=== PATIENT | male | born 1960 | race African-American/Black ===

== ENCOUNTER → 2017-06-21 | Outpatient (CLI) | payer OTHER ==
[~2017-06-21] MED LIST: OXYC20TA26 PO
--- NOTE | 2017-06-21 17:29 | TR ---
Date Performed: 06/21/2017 Time Performed: 11:20:48 DOCTOR: Jacki Hooker DRUG LIST: CLINICAL HISTORY: REASON FOR TEST: REASON FOR ENDING: OBSERVATION: CONCLUSION: NANCY PROTOCOL. NO CP. MILD SOB.Maximum MU=170 Max HR Achieved=96.0% Maximum IO=945 /88 Total Exercise Time=10:16 COMMENTS:
== END ==
LOC: HCAV 11:01
PROVIDERS: ATTEND Family Medicine
DX: I10 Essential (primary) hypertension (principal)
CPT/HCPCS: 93017

== ENCOUNTER 2017-07-17 15:03 | Emergency (ER) | payer OTHER ==
[~2017-07-17] VITALS: Ht 180.3 cm; Wt 94.0 kg
[2017-07-17 15:09] VITALS: BP 134/92; PULSE 64; RESP 15; TEMP 97.3; O2SAT 99
[2017-07-17] MEDS ORDERED: LOVA10TA PO (15:26)
[2017-07-17] MEDS ORDERED: LOSA25TA PO (15:26)
--- NOTE | 2017-07-17 16:06 | PD ---
HPI Chief Complaint: Pain: Acute or Chronic Time Seen by Provider: 15:39 Travel History International Travel<30 days: No Contact w/Intl Traveler<30days: No Traveled to known affect area: No History of Present Illness HPI 57-year-old male presents to the emergency room for evaluation of left heel pain for the past 4 days. Pain is localized to the proximal heel and radiates to the plantar heel with ambulation and while standing. Pain is 10/10 when he walks/stands and much less at rest. Patient took ibuprofen without significant relief in symptoms. States pain came on gradually; he denies trauma or injury to the area. Only history of hypertension. PFSH Past Medical History Cardiovascular Problems: Yes (PULMONARY EMBOLUS 2007) Diabetes: No Diminished Hearing: No Deep Vein Thrombosis: Yes Genitourinary: No Hypertension: Yes (OFF MEDS SINCE ADRENAL MASS REMOVED) Musculoskeletal: No Neurologic: No Psychiatric: No Respiratory: Yes (PUMLMONARY EMBOLUS POST SURG FOR ADRENAL GLAND) Influenza Vaccination: No Past Surgical History Endocrine Surgery: Yes (RIGHT ADRENAL GLAND REMOVED 05/04/2008) Other Surgery: Yes (RT ADRENAL GLAND) Social History Alcohol Use: Yes (2-3X/WK) Tobacco Use: No Substance Use: No Allergies-Medications (Allergen,Severity, Reaction): Coded Allergies: No Known Allergies (Verified , 07/17/17) Reported Meds & Prescriptions Reported Meds & Active Scripts Active Reported Lovastatin 10 Mg Tab 10 Mg PO DAILY Losartan (Losartan Potassium) 25 Mg Tab 12.5 Mg PO DAILY Review of Systems Except as stated in HPI: all other systems reviewed are Neg Physical Exam Narrative GENERAL: Well-nourished, well-developed male in no acute distress. Afebrile. Ambulatory. SKIN: Focused skin assessment warm/dry. No erythema or ecchymosis. HEAD: Normocephalic. EYES: No scleral icterus. No injection or drainage. NECK: Supple, trachea midline. No JVD or lymphadenopathy. CARDIOVASCULAR: Regular rate and rhythm without murmurs, gallops, or rubs. RESPIRATORY: Breath sounds equal bilaterally. No accessory muscle use. MUSCULOSKELETAL: No cyanosis, or edema. Achilles tendon intact. Mild tenderness to palpation of the left, proximal heel. Patient is flat-footed. Full range motion of the foot. 2+ dorsalis pedis pulse. Data Data Last Documented VS Vital Signs Date Time Temp Pulse Resp B/P (MAP) Pulse Ox O2 Delivery O2 Flow Rate FiO2 07/17/17 15:09 97.3 64 15 134/92 (106) 99 Orders Orders Foot, Heel Only ([id number]) (07/17/17 ) [facility] Medical Decision Making Medical Screen Exam Complete: Yes Emergency Medical Condition: Yes Medical Record Reviewed: Yes Differential Diagnosis Bone spur, plantar fasciitis, muscle strain, ligament injury Narrative Course 57-year-old male presents to the emergency room for evaluation of left heel pain for the past 4 days. No trauma or injury. Pain is localized to the proximal heel with radiation into the plantar heel. Pain is worsened with ambulation. There is tenderness to palpation at the proximal heel. Left lower extremity is neurovascularly intact with 2+ dorsalis pedis pulse. Full range of motion. History and physical exam are consistent with plantar fasciitis caused by heel spur. X-ray obtained at patient's request. X-ray shows calcaneal bone spur. Patient discharged with prescription for ibuprofen and recommendations for foot inserts as he is flat-footed. Told to follow-up with his primary care physician or return for worsening symptoms. He understands and agrees to plan. Diagnosis Primary Impression: Bone spur on posterior portion of calcaneus Referrals: Primary Care Physician Additional Instructions: Rest and drink plenty of fluids. Purchase [id number], silicone heel shoe inserts/arch supports/heel cups. Take ibuprofen with food as directed, as needed for pain. Follow-up with a primary care physician. Return to the emergency room for worsening symptoms. Disposition: 01 DISCHARGE HOME Condition: Stable Jenifer Hood Jul 17, 2017 16:06
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
[2017-07-17 16:49] VITALS: BP 128/84
== END 2017-07-17 16:50 | disposition home or self-care (01) ==
LOC: PHEFT 15:03
DX: M77.32 Calcaneal spur, left foot (principal)
CPT/HCPCS: 73650; 99283

== ENCOUNTER 2018-01-29 00:18 | Emergency (ER) | payer OTHER ==
[~2018-01-29 00:18] MED LIST changes: +LOSA25TA PO; +LOVA10TA PO; -OXYC20TA26 PO
== END 2018-01-29 00:48 | disposition left against medical advice (07) ==
LOC: NED 00:18
DX: R09.89 Other specified symptoms and signs involving the circulatory and respiratory systems (principal)
CPT/HCPCS: 99281

== ENCOUNTER 2018-05-06 21:38 | Inpatient (IN) | payer SELFPAY ==
[~2018-05-06] VITALS: Ht 180.3 cm; Wt 93.4 kg
[2018-05-06 22:07] VITALS: BP 198/132; PULSE 67; RESP 20; TEMP 98.4; O2SAT 100
[2018-05-06] MEDS ORDERED: ALLO300T2 PO (22:12)
[2018-05-06] MEDS ORDERED: hydrALAZINE HCL 20 MG/ML VIAL IV PUSH ONE (22:30)
[2018-05-06] MEDS ORDERED: SODIUM CHLORIDE 0.9% FLUSH 10 ML FLUSH IVF PRN (22:30)
[2018-05-06 22:42] LABS: AUTOMATED NEUTROPHIL # 1.5 TH/MM3 (1.8-7.7); BASOPHIL % 0.7 % (0.0-2.0); EOSINOPHIL # 0.1 TH/MM3 (0-0.4); EOSINOPHIL % 1.1 % (0.0-4.0); HEMATOCRIT 44.7 % (39.0-51.0); HEMOGLOBIN 15.2 GM/DL (13.0-17.0); LYMPHOCYTE # 2.5 TH/MM3 (1.0-4.8); MEAN CELL VOLUME 94.2 FL (80.0-100.0); MONO % 10.4 % (0.0-8.0); MONOCYTE # 0.5 TH/MM3 (0-0.9); NEUT % 32.8 % (16.0-70.0); PLATELET COUNT 295 TH/MM3 (150-450); RED BLOOD COUNT 4.74 MIL/MM3 (4.50-5.90); RED CELL DISTRIBUTION WIDTH 13.4 % (11.6-17.2); WHITE BLOOD COUNT 4.6 TH/MM3 (4.0-11.0)
[2018-05-06 22:51] LABS: CHLORIDE 105 MEQ/L (98-107); SODIUM (NA) 138 MEQ/L (136-145)
[2018-05-06 22:53] LABS: CALCIUM 8.9 MG/DL (8.5-10.1)
[2018-05-06 22:54] LABS: BICARBONATE 27.2 MEQ/L (21.0-32.0); BLOOD UREA NITROGEN 22 MG/DL (7-18); GLUCOSE,RANDOM 86 MG/DL (74-106)
[2018-05-06 22:57] VITALS: BP 216/135; PULSE 82; O2SAT 98
[2018-05-06 22:57] LABS: GLOMERULAR FILTRATION RATE 47 ML/MIN (>89)
[2018-05-06 22:58] VITALS: O2SAT 98
[2018-05-06 23:02] LABS: TROPONIN I LESS THAN 0.02 NG/ML (0.02-0.05)
--- NOTE | 2018-05-06 23:16 | PD ---
HPI Chief Complaint: Hypertension Time Seen by Provider: 22:24 Travel History International Travel<30 days: No Contact w/Intl Traveler<30days: No Traveled to known affect area: No History of Present Illness HPI 58-year-old male presents to the emergency department by private transportation for complaint of elevated blood pressure. Patient states this evening he noticed headache 5/10 in intensity and decided to check his blood pressure is very elevated. Patient states over the past few days she has noted symptoms such as intermittent blurred vision or headache and each time he has checked his blood pressure has been very elevated. Patient states recently he went to urgent care because his primary care provider was out of town and was told that his blood pressure is elevated and was encouraged to increase his current antihypertensive medication. Patient has prior history of blood pressure associated with adrenal mass which was excised numerous years ago. Patient has had no issues with blood pressure until more recently. Patient currently on losartan for blood pressure management. Patient recently had dose increased from 12.5 mg daily to 25 mg daily. Patient has been taking his medication as prescribed. Patient denies any sudden onset thunderclap or worst ever headache. Patient has had no change in mentation. Patient denies any visual disturbance at this time or today. Patient's had no change in speech or difficulty swallowing. Patient's had no gait disturbance. Patient's had no ataxia. Patient's had no upper extremity or lower extremity numbness tingling or weakness. Patient had no chest pain referred neck jaw back shoulder arm pain shortness of breath sweats nausea vomiting or abdominal pain. Patient also has remote history of post op PE and does not report any pleuritic pain or shortness of breath. Patient is unable to identify exacerbating or alleviating factors. 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 Cardiovascular Problems: Yes (PULMONARY EMBOLUS 2007) High Cholesterol: Yes Diabetes: No Diminished Hearing: No Deep Vein Thrombosis: Yes Genitourinary: No Hypertension: Yes Musculoskeletal: No Neurologic: No Psychiatric: No Respiratory: Yes (PUMLMONARY EMBOLUS POST SURG FOR ADRENAL GLAND) Tetanus Vaccination: Unknown Influenza Vaccination: No Past Surgical History Endocrine Surgery: Yes (RIGHT ADRENAL GLAND REMOVED 05/04/2008) Other Surgery: Yes (RT ADRENAL GLAND) Social History Alcohol Use: Yes (2-3X/WK) Tobacco Use: No Substance Use: No Allergies-Medications (Allergen,Severity, Reaction): Coded Allergies: No Known Allergies (Verified Allergy, Unknown, 05/07/18) Reported Meds & Prescriptions Reported Meds & Active Scripts Active Reported Allopurinol 300 Mg Tab 300 Mg PO DAILY Lovastatin 10 Mg Tab 10 Mg PO DAILY Losartan (Losartan Potassium) 25 Mg Tab 12.5 Mg PO DAILY Review of Systems Except as stated in HPI: all other systems reviewed are Neg General / Constitutional: No: Fever, Chills Eyes: Positive: Blurred Vision (intermittently none now), No: Diploplia HENT: Positive: Headaches, No: Neck Stiffness, Neck Pain Cardiovascular: No: Chest Pain or Discomfort, Palpitations, Diaphoresis, Syncope, Dyspnea on exertion, Edema Respiratory: No: Cough, Shortness of Breath, Wheezing, Hemoptysis, Pleuritic Pain Gastrointestinal: No: Nausea, Vomiting, Abdominal Pain Genitourinary: No: Flank Pain Musculoskeletal: No: Myalgias, Arthralgias, Edema Skin: No Rash Neurologic: Positive: Headache, No: Weakness, Dizziness, Syncope, Focal Abnormalities, Coordination Problem, Ataxia, Change in Mentation, Slurred Speech , Paresthesia Psychiatric: No: Anxiety Endocrine: No: Heat Intolerance, Cold Intolerance Hematologic/Lymphatic: No: Easy Bruising Physical Exam Narrative GENERAL: Well-developed well-nourished male no acute distress no respiratory distress; GCS 15; hypertensive SKIN: Warm and dry. HEAD: Atraumatic. Normocephalic. EYES: Pupils equal and round and reactive to light. No scleral icterus. No injection or drainage. ENT: No nasal bleeding or discharge. Mucous membranes pink and moist. NECK: Trachea midline. No JVD. CARDIOVASCULAR: Regular rate and rhythm. RESPIRATORY: No accessory muscle use. Clear to auscultation. Breath sounds equal bilaterally. GASTROINTESTINAL: Abdomen soft, non-tender, nondistended. Hepatic and splenic margins not palpable. MUSCULOSKELETAL: Extremities without clubbing, cyanosis, or edema. No obvious deformities. NEUROLOGICAL: Awake and alert. No obvious cranial nerve deficits. Motor grossly within normal limits. Five out of 5 muscle strength in the arms and legs. Normal speech. PSYCHIATRIC: Appropriate mood and affect; insight and judgment normal. Data Data Last Documented VS Vital Signs Date Time Temp Pulse Resp B/P (MAP) Pulse Ox O2 Delivery O2 Flow Rate FiO2 05/07/18 02:00 74 20 152/106 (121) 98 05/07/18 00:44 Room Air 05/06/18 22:07 98.4 Orders Orders Complete Blood Count With Diff (05/06/18 22:24) Basic Metabolic Panel (Bmp) (05/06/18 22:24) Ct Brain W/O Iv Contrast(Rout) (05/06/18 22:24) Ecg Monitoring (05/06/18 22:24) Iv Access Insert/Monitor (05/06/18 22:24) Oximetry (05/06/18 22:24) Sodium Chloride 0.9% Flush (Ns Flush) (05/06/18 22:30) Troponin I (05/06/18 22:24) Hydralazine Inj (Apresoline Inj) (05/06/18 22:30) Labetalol Inj (Trandate Inj) (05/06/18 23:30) Labetalol Inj (Trandate Inj) (05/07/18 00:00) Labetalol Inj (Trandate Inj) (05/07/18 00:00) Morphine Inj (Morphine Inj) (05/07/18 00:00) Metoclopramide Inj (Reglan Inj) (05/07/18 00:00) Chest, Single Ap (05/06/18 ) Urinalysis - C+S If Indicated (05/06/18 23:58) Type And Screen (05/06/18 23:58) Ckmb (Isoenzyme) Profile (05/06/18 22:30) CKMB (05/06/18 22:30) CKMB% (05/06/18 22:30) Admit To Inpatient (05/07/18 ) Vital Signs (Adult) Q4H (05/07/18 02:20) Activity Oob With Assistance (05/07/18 02:20) Diet Heart Healthy (05/07/18 Breakfast) Sodium Chlor 0.9% 1000 Ml Inj (Ns 1000 M (05/07/18 02:20) Sodium Chloride 0.9% Flush (Ns Flush) (05/07/18 02:30) Sodium Chloride 0.9% Flush (Ns Flush) (05/07/18 09:00) Acetaminophen (Tylenol) (05/07/18 02:30) Ondansetron Inj (Zofran Inj) (05/07/18 02:30) Basic Metabolic Panel (Bmp) (05/08/18 06:00) Complete Blood Count With Diff (05/08/18 06:00) Naloxone Inj (Narcan Inj) (05/07/18 02:30) Docusate Sodium-Senna (Kailyn-Colace) (05/07/18 09:00) Magnesium Hydroxide Liq (Milk Of Magnesi (05/07/18 02:30) Sennosides (Senokot) (05/07/18 02:30) Bisacodyl Supp (Dulcolax Supp) (05/07/18 02:30) Lactulose Liq (Lactulose Liq) (05/07/18 02:30) Inpatient Certification (05/07/18 ) Heparin Inj (Heparin Inj) (05/07/18 06:00) Admit Order (Ed Use Only) (05/07/18 ) [employer] Pipe[employer] / Telemetry [id number] (05/07/18 02:24) Activity Bed Rest (05/07/18 02:24) Notify Dr: Other (05/07/18 02:24) Labs Laboratory Tests Test 05/06/18 22:30 05/07/18 00:10 White Blood Count 4.6 TH/MM3 Red Blood Count 4.74 MIL/MM3 Hemoglobin 15.2 GM/DL Hematocrit 44.7 % Mean Corpuscular Volume 94.2 FL Mean Corpuscular Hemoglobin 32.0 PG Mean Corpuscular Hemoglobin Concent 34.0 % Red Cell Distribution Width 13.4 % Platelet Count 295 TH/MM3 Mean Platelet Volume 7.0 FL Neutrophils (%) (Auto) 32.8 % Lymphocytes (%) (Auto) 55.0 % Monocytes (%) (Auto) 10.4 % Eosinophils (%) (Auto) 1.1 % Basophils (%) (Auto) 0.7 % Neutrophils # (Auto) 1.5 TH/MM3 Lymphocytes # (Auto) 2.5 TH/MM3 Monocytes # (Auto) 0.5 TH/MM3 Eosinophils # (Auto) 0.1 TH/MM3 Basophils # (Auto) 0.0 TH/MM3 CBC Comment DIFF FINAL Differential Comment Blood Urea Nitrogen 22 MG/DL Creatinine 1.80 MG/DL Random Glucose 86 MG/DL Calcium Level 8.9 MG/DL Sodium Level 138 MEQ/L Potassium Level 3.9 MEQ/L Chloride Level 105 MEQ/L Carbon Dioxide Level 27.2 MEQ/L Anion Gap 6 MEQ/L Estimat Glomerular Filtration Rate 47 ML/MIN Total Creatine Kinase 389 U/L Creatine Kinase MB 3.2 NG/ML Creatine Kinase MB % 0.8 % Troponin I LESS THAN 0.02 NG/ML Urine Color YELLOW Urine Turbidity CLEAR Urine pH 6.5 Urine Specific [place] LESS/EQUAL 1.005 Urine Protein NEG mg/dL Urine Glucose (UA) NEG mg/dL Urine Ketones NEG mg/dL Urine Occult Blood NEG Urine Nitrite NEG Urine Bilirubin NEG Urine Urobilinogen 0.2 MG/DL Urine Leukocyte Esterase NEG Urine RBC 0-3 /hpf Urine WBC 0-2 /hpf Urine Squamous Epithelial Cells 0-5 /hpf Urine Bacteria NONE /hpf Microscopic Urinalysis Comment CULT NOT INDICATED MDM Medical Decision Making Medical Screen Exam Complete: Yes Emergency Medical Condition: Yes Medical Record Reviewed: Yes Interpretation(s) EKG normal sinus rhythm rate 70 incomplete right bundle branch block no acute ST elevation injury pattern or ectopy noted troponin I: less than 0.02, not elevated Last Impressions Aorta CTA 05/07/18 0000 Signed Impressions: CONCLUSION: 1. Thoracic and abdominal aorta within normal limits. 2. Status post right adrenalectomy. Head CT 05/06/18 2224 Signed Impressions: CONCLUSION: 1. No acute intracranial findings. 2. Mild ethmoid and maxillary sinus disease. Chest X-Ray 05/06/18 0000 Signed Impressions: CONCLUSION: No acute cardiopulmonary disease identified. CBC & BMP Diagram 05/06/18 22:30 Calcium Level 8.9 Vital Signs Date Time Temp Pulse Resp B/P (MAP) Pulse Ox O2 Delivery O2 Flow Rate FiO2 05/07/18 02:00 74 20 152/106 (121) 98 05/07/18 01:30 62 20 137/93 (108) 97 05/07/18 01:00 64 20 147/98 (114) 98 05/07/18 00:48 74 20 120/81 (94) 98 05/07/18 00:44 20 98 Room Air 05/07/18 00:30 74 20 201/130 (153) 05/07/18 00:00 66 20 204/132 (156) 98 05/06/18 22:58 98 05/06/18 22:57 82 216/135 (162) 98 Room Air 05/06/18 22:07 98.4 67 20 198/132 (154) 100 UA: wnl Differential Diagnosis Hypertensive urgency hypertensive crisis ICH ACS arrhythmia electrolyte disturbance aortic dissection subtherapeutic antihypertensive medication recurrent adrenal mass Narrative Course Patient placed on security monitor IV access obtained continuous pulse oximetry as well monitored; specimens collections of resulting EKG is sinus rhythm with no acute injury pattern incomplete right bundle branch block is noted Patient remains markedly hypertensive hydralazine 10 mg IV ordered to be administered CT brain noncontrast pending at this time Lab values are found to be in normal range except for renal insufficiency BUN is 22 creatinine is 1.81 this is increased from last lab value that was collected 2010 at which time creatinine is 1.41 Troponin I is less than 0.02, not elevated @ 23:56 patient now reports discomfort to the left periumbilical area 7/10 in intensity nonradiating no chest pain no shortness of breath no nausea no vomiting sweats; after one-time dose of labetalol patient's depression started to decrease to 115/113 and on recheck had again increased at 187/115 patient ordered additional dose of labetalol and a labetalol infusion. Patient has palpable bilateral radial and dorsalis pedis pulses 2+ to palpation. At 2 AM patient is voicing no concerns no headache no visual disturbance no chest pain no shortness of breath no nausea no vomiting no abdominal pain no back pain no extremity numbness tingling weakness or pain patient states that he feels well; call placed to medicine service for admission to stepdown unit versus ICU for ongoing as needed IV antihypertensive intervention. Patient's case discussed with Dr. Zepeda. Physician Communication Physician Communication discussed with Dr Zepeda --admit to stepdown unit Diagnosis Primary Impression: Hypertensive crisis Additional Impression: Renal insufficiency Admitting Information Admitting Physician Requests: Admit Ambar Mazariegos MD May 06, 2018 23:16
[2018-05-06] MEDS ORDERED: LABETALOL HCL 100 MG/20 ML VIAL IV PUSH ONE (23:30)
--- NOTE | 2018-05-06 23:57 | RADRPT ---
EXAM DATE: 05/06/2018 11:52 PM EDT AGE/SEX: 58 years / Male INDICATIONS: Hypertensive headache. CLINICAL DATA: This is the patient's initial encounter. Patient reports that signs and symptoms have been present for 1 day and indicates a pain score of 7/10. MEDICAL/SURGICAL HISTORY: Hypertension. Deep venous thrombosis. Pulmonary embolus . Adrenal tumor removed RADIATION DOSE: 60.33 CTDI (mGy) COMPARISON: No prior exams available for comparison. TECHNIQUE: CT of the head without contrast. Using automated exposure control and adjustment of the mA and/or kV according to patient size, radiation dose was kept as low as reasonably achievable to ob tain optimal diagnostic quality images. FINDINGS: Cerebrum: The ventricles are normal for age. No evidence of midline shift, mass lesion, hemorrhage or acute infarction. No extraaxial fluid collections are seen. Posterior Fossa: The cerebellum and brainstem are intact. The 4th ventricle is midline. The cerebe llopontine angle is unremarkable. Extracranial: Mild mucosal thickening of the maxillary and ethmoid sinuses. Skull: The calvaria is intact. No evidence of skull fracture. CONCLUSION: 1. No acute intracranial findings. 2. Mild ethmoid and maxillary sinus disease. Electronically signed by: Gordon Gutierrez MD 05/06/2018 11:56 PM EDT
[2018-05-07] VITALS (21 sets, daily range): BP systolic 99–204; BP diastolic 68–132; PULSE 59–110; RESP 17–21; TEMP 98–98.2; O2SAT 97–100
[2018-05-07] MEDS ORDERED: LABETALOL HCL 100 MG/20 ML VIAL IV PUSH ONE
[2018-05-07] MEDS ORDERED: MORPHINE SULFATE 4 MG/ML INJ IV PUSH ONE
[2018-05-07] MEDS ORDERED: METOCLOPRAMIDE HCL 10 MG/2 ML VIAL IV PUSH ONE
[2018-05-07] MEDS ORDERED: LABETALOL INJ 500 MG in SODIUM CHLORIDE 0.9% INJ 150 ML IV PRN ×2
--- NOTE | 2018-05-07 00:33 | RADRPT ---
EXAM DATE: 05/07/2018 12:19 AM EDT AGE/SEX: 58 years / Male INDICATIONS: Hypertension. CLINICAL DATA: This is the patient's initial encounter. Patient reports that signs and symptoms have been present for 1 day and indicates a pain score of 0/10. MEDICAL/SURGICAL HISTORY: Hypertension. Deep venous thrombosis. Pulmonary embolism. None. COMPARISON: No prior exams available for comparison. FINDINGS: Single AP view of the chest. The lungs are clear. Cardiomediastinal silhouette within norm al limits. No evidence of pleural effusion or pneumothorax. CONCLUSION: No acute cardiopulmonary disease identified. Electronically signed by: Gordon Gutierrez MD 05/07/2018 12:32 AM EDT
[2018-05-07 00:49] LABS: BILIRUBIN, URINE NEG (NEG); BLOOD, URINE NEG (NEG); GLUCOSE,URINE NEG (NEG); KETONE, URINE NEG (NEG); NITRITE,URINE NEG (NEG); PH, URINE 6.5 (5.0-8.5); URINE COLOR YELLOW (YELLW/STRAW); URINE LEUKOCYTE ESTERASE NEG (NEG)
[2018-05-07 00:56] LABS: RBC, URINE 0-3 /hpf (0-3); SQUAMOUS EPITHELIAL CELL URINE 0-5 /hpf (0-5); WBC, URINE 0-2 /hpf (0-5)
[2018-05-07] MEDS ORDERED: SODIUM CHLOR 0.9% 1000 ML INJ 1,000 ML IV SCH (02:20)
[2018-05-07] MEDS ORDERED: SENNOSIDES 8.6 MG TAB PO PRN (02:30)
[2018-05-07] MEDS ORDERED: SODIUM CHLORIDE 0.9% FLUSH 10 ML FLUSH IV FLUSH PRN (02:30)
[2018-05-07] MEDS ORDERED: LACTULOSE SYRUP 20 GM/30 ML CUP PO PRN (02:30)
[2018-05-07] MEDS ORDERED: ONDANSETRON HCL 4 MG/2 ML VIAL IVP PRN (02:30)
[2018-05-07] MEDS ORDERED: ACETAMINOPHEN 325 MG TAB PO PRN (02:30)
[2018-05-07] MEDS ORDERED: MAGNESIUM HYDROXIDE SUSP 30 ML CUP PO PRN (02:30)
[2018-05-07] MEDS ORDERED: BISACODYL 10 MG SUPP RECTAL PRN (02:30)
[2018-05-07] MEDS ORDERED: NALOXONE HCL 0.4 MG/ML AMP IV PUSH PRN (02:30)
[2018-05-07] MEDS ORDERED: IOHEXOL 350 MG/ML 10 ML VIAL (for RAD DIAG) IVCONTRAST ONE (03:10)
--- NOTE | 2018-05-07 03:53 | RADRPT ---
EXAM DATE: 05/07/2018 3:33 AM EDT AGE/SEX: 58 years / Male INDICATIONS: Uncontrolled hypertension; rule out aortic dissection. CLINICAL DATA: This is the patient's initial encounter. Patient reports that signs and symptoms have been present for 2 days and indicates a pain score of 3/10. MEDICAL/SURGICAL HISTORY: Deep venous thrombosis. Hypertension. Pulmonary embolus . Adrenal tumor removed RADIATION DOSE: 20.74 CTDI (mGy) COMPARISON: No prior exams available for comparison. TECHNIQUE: Volumetric scanning was performed using a multi-row detector CT scanner during bolus infu elidia of 98 ml Omnipaque 350 (iohexol) nonionic water-soluble contrast as a single exam dose. The da ta was post processed with a variety of visualization algorithms including full volume maximum intens ity projection, multi-planar sliding thin slab reformation, curved planar reformation, and surface re ndering techniques. Using automated exposure control and adjustment of the mA and/or kV according to patient size, radiation dose was kept as low as reasonably achievable to obtain optimal diagnostic q uality images. FINDINGS: The thoracic and abdominal aorta is within normal limits in diameter. No evidence of dissection. Jillian rial origins at the aortic arch are widely patent. The celiac artery, SMA, and SALMA are widely patent. Bilateral renal arteries are widely patent. Lungs are clear. No evidence of pleural effusion or pneumothorax. No enlarged mediastinal lymph nodes . Liver, gallbladder, pancreas, spleen, left adrenal gland, and kidneys are within normal limits. Surgi skylar clips are seen in the expected region of the right adrenal gland. Right adrenal gland is absent. No evidence of bowel dilatation. No free air or free fluid. Appendix within normal limits. No enlarge d lymph nodes in the abdomen. Urinary bladder within normal limits. Prostate is enlarged measuring 5. 8 cm in transverse dimension. Prominent facet arthrosis of the lower lumbar spine. CONCLUSION: 1. Thoracic and abdominal aorta within normal limits. 2. Status post right adrenalectomy. Electronically signed by: Gordon Gutierrez MD 05/07/2018 3:52 AM EDT
[2018-05-07] MEDS ORDERED: HEPARIN SODIUM - SQ 10,000 UNITS/ML VIAL SQ SCH (06:00)
[2018-05-07] MEDS ORDERED: DOCUSATE SODIUM 50 MG/SENNA 8.6 MG TAB PO SCH (09:00)
[2018-05-07] MEDS ORDERED: SODIUM CHLORIDE 0.9% FLUSH 10 ML FLUSH IV FLUSH SCH (09:00)
[2018-05-07] MEDS ORDERED: HYDR-3799 PO (11:58)
--- NOTE | 2018-05-07 11:58 | HHI.DCPOC ---
Discharge Care Plan Diagnosis: (1) Hypertensive crisis (2) Renal insufficiency Goals to Promote Your Health * To prevent worsening of your condition and complications * To maintain your health at the optimal level Directions to Meet Your Goals Take your medications as prescribed Follow your dietary instruction Follow activity as directed Keep your appointments as scheduled Take your immunizations and boosters as scheduled If your symptoms worsen call your PCP, if no PCP go to Urgent Care Center or Emergency Room Smoking is Dangerous to Your Health. Avoid second hand smoke Call the 24-hour hour crisis hotline for domestic abuse at Celena Salinas MD May 07, 2018 11:58
--- NOTE | 2018-05-07 12:07 | HHI.HP ---
[facility] Service [facility] Primary Care Physician Ruperto Ann MD Admission Diagnosis hypertensive crisis Diagnoses: Chief Complaint: Elevated blood pressure Travel History International Travel<30 Days: No Contact w/Intl Traveler <30 Da: No Traveled to Known Affected Are: No History of Present Illness Patient is very pleasant 58-year-old gentleman with a history of an adrenal mass and associated hypertension which was removed at the [facility] in 2007. He has had hypertension over the last 5 years and been follow-up with his primary care provider who has been prescribing losartan. Apparently over the last 24 hours patient noted that he had a headache and some blurry vision. Took his blood pressure and it was 158/112. Patient did go to urgent care center and was prescribed lisinopril. His blood pressure was still elevated so he came to the emergency department. Here his blood pressure was 216/135 and he was given a labetalol drip and admitted to the ICU. His blood pressure seemed to improve as well as his headache and blurry vision. Patient at this time feels well. He has no chest pain has not had any shortness of breath. He did have an aortogram done which did not show any evidence of dissection or masses. Patient has a chronic kidney disease and his renal function has a GFR 47. Certainly it is concerning in a patient with a known history of adrenal mass with recurrent episodic hypertension. He will need further evaluation by his primary care doctor and outpatient renal ultrasound has been recommended. I did discuss discharge planning with the patient. Patient will need to recalibrate his blood pressure machine and follow-up with his primary care physician. He expressed understanding Review of Systems Constitutional: DENIES: Diaphoretic episodes, Fatigue, Fever, Weight gain, Weight loss, Chills, Dizziness, Change in appetite, Night Sweats Endocrine: DENIES: Heat/cold intolerance, Polydipsia, Polyuria, Polyphagia Eyes: COMPLAINS OF: Blurred vision, DENIES: Eye pain Ears, nose, mouth, throat: DENIES: Tinnitus, Hearing loss, Vertigo, Nasal discharge, Oral lesions, Throat pain, Hoarseness, Ear Pain, Running Nose, Epistaxis, Sinus Pain, Toothache, Odynophagia Respiratory: DENIES: Apneas, Cough, Snoring, Wheezing, Hemoptysis, Sputum production, Shortness of breath Cardiovascular: DENIES: Chest pain, Palpitations, Syncope, Dyspnea on Exertion , PND, Lower Extremity Edema, Orthopnea, Claudication Gastrointestinal: DENIES: Abdominal pain, Black stools, Bloody stools, Constipation, Diarrhea, Nausea, Vomiting, Difficulty Swallowing, Anorexia Genitourinary: DENIES: Sexual dysfunction, Urinary frequency, Urinary incontinence, Urgency, Hematuria, Dysuria, Nocturia, Penile Discharge, Testicular Pain, Testicular Swelling Musculoskeletal: DENIES: Joint pain, Muscle aches, Stiffness, Joint Swelling, Back pain, Neck pain Integumentary: DENIES: Abnormal pigmentation, Nail changes, Pruritus, Rash Hematologic/lymphatic: DENIES: Bruising, Lymphadenopathy Immunologic/allergic: DENIES: Eczema, Urticaria Neurologic: COMPLAINS OF: Headache, DENIES: Abnormal gait, Localized weakness, Paresthesias, Seizures, Speech Problems, Tremor, Poor Balance Psychiatric: DENIES: Anxiety, Confusion, Mood changes, Depression, Hallucinations, Agitation, Suicidal Ideation, Homicidal Ideation, Delusions Except as stated in HPI: all other systems reviewed are Neg Past Family Social History Past Medical History Adrenal mass Hypertension Hyperlipidemia Gout Past Surgical History Right adrenal resection Reported Medications Reviewed in the EMR, was recently given lisinopril Allergies: Coded Allergies: No Known Allergies (Verified Allergy, Unknown, 05/07/18) Active Ordered Medications Reviewed in the EMR Family History Mother's history is unknown and she when he was 3 years old Father's history is unknown Social History No current tobacco Alcohol occasionally Employed full-time Lives independently Physical Exam Vital Signs Vital Signs Date Time Temp Pulse Resp B/P (MAP) Pulse Ox O2 Delivery O2 Flow Rate FiO2 05/07/18 11:00 98.0 62 21 123/78 (93) 97 05/07/18 07:18 98.2 59 19 140/96 (111) 98 05/07/18 06:20 98.0 62 17 175/109 (131) 100 05/07/18 06:00 77 20 113/75 (88) 98 05/07/18 05:30 73 18 99/68 (78) 99 Room Air 05/07/18 05:00 69 20 118/72 (87) 98 Room Air 05/07/18 04:30 62 20 119/85 (96) 98 05/07/18 04:00 73 20 110/74 (86) 98 05/07/18 03:30 62 20 168/119 (135) 99 05/07/18 03:00 63 20 173/120 (137) 99 05/07/18 02:30 62 20 166/113 (130) 98 05/07/18 02:00 74 20 152/106 (121) 98 05/07/18 01:30 62 20 137/93 (108) 97 05/07/18 01:00 64 20 147/98 (114) 98 05/07/18 00:48 74 20 120/81 (94) 98 05/07/18 00:44 20 98 Room Air 05/07/18 00:30 74 20 201/130 (153) 05/07/18 00:00 66 20 204/132 (156) 98 05/06/18 22:58 98 05/06/18 22:57 82 216/135 (162) 98 Room Air 05/06/18 22:07 98.4 67 20 198/132 (154) 100 Physical Exam GENERAL: This is a well-nourished, well-developed patient, in no apparent distress. SKIN: No rashes, ecchymoses or lesions. Cool and dry. HEAD: Atraumatic. Normocephalic. No temporal or scalp tenderness. EYES: Pupils equal round and reactive. Extraocular motions intact. No scleral icterus. No injection or drainage. ENT: Nose without bleeding, purulent drainage or septal hematoma. Throat without erythema, tonsillar hypertrophy or exudate. Uvula midline. Airway patent. NECK: Trachea midline. No JVD or lymphadenopathy. Supple, nontender, no meningeal signs. CARDIOVASCULAR: Regular rate and rhythm without murmurs, gallops, or rubs. RESPIRATORY: Clear to auscultation. Breath sounds equal bilaterally. No wheezes , rales, or rhonchi. GASTROINTESTINAL: Abdomen soft, non-tender, nondistended. No hepato-splenomegaly , or palpable masses. No guarding. MUSCULOSKELETAL: Extremities without clubbing, cyanosis, or edema. No joint tenderness, effusion, or edema noted. No calf tenderness. Negative Homans sign bilaterally. NEUROLOGICAL: Awake and alert. Cranial nerves II through XII intact. Motor and sensory grossly within normal limits. Five out of 5 muscle strength in all muscle groups. Normal speech. Laboratory Laboratory Tests Test 05/06/18 22:30 05/07/18 00:10 White Blood Count 4.6 Red Blood Count 4.74 Hemoglobin 15.2 Hematocrit 44.7 Mean Corpuscular Volume 94.2 Mean Corpuscular Hemoglobin 32.0 Mean Corpuscular Hemoglobin Concent 34.0 Red Cell Distribution Width 13.4 Platelet Count 295 Mean Platelet Volume 7.0 Neutrophils (%) (Auto) 32.8 Lymphocytes (%) (Auto) 55.0 Monocytes (%) (Auto) 10.4 Eosinophils (%) (Auto) 1.1 Basophils (%) (Auto) 0.7 Neutrophils # (Auto) 1.5 Lymphocytes # (Auto) 2.5 Monocytes # (Auto) 0.5 Eosinophils # (Auto) 0.1 Basophils # (Auto) 0.0 CBC Comment DIFF FINAL Differential Comment Blood Urea Nitrogen 22 Creatinine 1.80 Random Glucose 86 Calcium Level 8.9 Sodium Level 138 Potassium Level 3.9 Chloride Level 105 Carbon Dioxide Level 27.2 Anion Gap 6 Estimat Glomerular Filtration Rate 47 Total Creatine Kinase 389 Creatine Kinase MB 3.2 Creatine Kinase MB % 0.8 Troponin I LESS THAN 0.02 Urine Color YELLOW Urine Turbidity CLEAR Urine pH 6.5 Urine Specific [place] LESS/EQUAL 1.005 Urine Protein NEG Urine Glucose (UA) NEG Urine Ketones NEG Urine Occult Blood NEG Urine Nitrite NEG Urine Bilirubin NEG Urine Urobilinogen 0.2 Urine Leukocyte Esterase NEG Urine RBC 0-3 Urine WBC 0-2 Urine Squamous Epithelial Cells 0-5 Urine Bacteria NONE Microscopic Urinalysis Comment CULT NOT INDICATED Result Diagram: 05/06/18222905/06/182229 Imaging Last Impressions Aorta CTA 05/07/18 0000 Signed Impressions: CONCLUSION: 1. Thoracic and abdominal aorta within normal limits. 2. Status post right adrenalectomy. Head CT 05/06/182223 Signed Impressions: CONCLUSION: 1. No acute intracranial findings. 2. Mild ethmoid and maxillary sinus disease. Chest X-Ray 05/06/18 0000 Signed Impressions: CONCLUSION: No acute cardiopulmonary disease identified. Caprini VTE Risk Assessment Caprini VTE Risk Assessment: No/Low Risk (score <= 1) Caprini Risk Assessment Model Point Value = 1 Point Value = 2 Point Value = 3 Point Value = 5 Age 41-60 Minor surgery BMI > 25 kg/m2 Swollen legs Varicose veins or History of unexplained or recurrent spontaneous Oral contraceptives or hormone replacement Sepsis (< 1 month) Serious lung disease, including pneumonia (< 1 month) Abnormal pulmonary function Acute myocardial infarction Congestive heart failure (< 1 month) History of inflammatory bowel disease Medical patient at bed rest Age 61-74 Arthroscopic surgery Major open surgery (> 45 min) Laparoscopic surgery (> 45 min) Malignancy Confined to bed (> 72 hours) Immobilizing plaster cast Central venous access Age >= 75 History of VTE Family history of VTE Factor V Leiden Prothrombin [id number] Lupus anticoagulant Anticardiolipin antibodies Elevated serum homocysteine Heparin-induced thrombocytopenia Other congenital or acquired thrombophilia Stroke (< 1 month) Elective arthroplasty Hip, pelvis, or leg fracture Acute spinal cord injury (< 1 month) Prophylaxis Regimen Total Risk Factor Score Risk Level Prophylaxis Regimen 0-1 Low Early ambulation 2 Moderate Order ONE of the following: *Sequential Compression Device (SCD) *Heparin 5000 units SQ BID 3-4 Higher Order ONE of the following medications: *Heparin 5000 units SQ TID *Enoxaparin/Lovenox 40 mg SQ daily (WT < 150 kg, CrCl > 30 mL/min) *Enoxaparin/Lovenox 30 mg SQ daily (WT < 150 kg, CrCl > 10-29 mL/min) *Enoxaparin/Lovenox 30 mg SQ BID (WT < 150 kg, CrCl > 30 mL/min) AND/OR *Sequential Compression Device (SCD) 5 or more Highest Order ONE of the following medications: *Heparin 5000 units SQ TID (Preferred with Epidurals) *Enoxaparin/Lovenox 40 mg SQ daily (WT < 150 kg, CrCl > 30 mL/min) *Enoxaparin/Lovenox 30 mg SQ daily (WT < 150 kg, CrCl > 10-29 mL/min) *Enoxaparin/Lovenox 30 mg SQ BID (WT < 150 kg, CrCl > 30 mL/min) AND *Sequential Compression Device (SCD) Assessment and Plan Problem List: (1) Renal insufficiency ICD Code: N28.9 - Disorder of kidney and ureter, unspecified Status: Acute Plan: Appears to be chronic in the patient with known hypertension. Will continue to follow-up with primary care provider Continue losartan Add hydralazine as needed (2) Hypertensive crisis ICD Code: I16.9 - Hypertensive crisis, unspecified Status: Acute Plan: Patient's blood pressure appears to have improved overnight. 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 In the case of services not specified as inpatient-only, they are appropriately provided as inpatient services in accordance with the 2-midnight benchmark. Estimated LOS (days): 2 2 days is the estimated time the patient will need to remain in the hospital, assuming treatment plan goals are met and no additional complications. Post-Hospital Plan: Home Celena Salinas MD May 07, 2018 12:07
--- NOTE | 2018-05-07 14:26 | EKG ---
Date Performed: 05/06/2018 Time Performed: 22:13:48 PTAGE: 58 years EKG: Sinus rhythm INCOMPLETE RIGHT BUNDLE BRANCH BLOCK BORDERLINE ECG No significant change from prior electrocardiogr am. PREVIOUS TRACING : 06/15/2010 19.05 DOCTOR: Willy Beebe Interpretating Date/Time 05/07/2018 14:25:53
== END 2018-05-07 13:24 | disposition home or self-care (01) | DRG 683 ==
LOC: PHED 21:38 → PHEDA 05-07 02:27 → PHICU 05-07 06:08
PROVIDERS: ADMIT Hospitalist; ATTEND Hospitalist
DX: I12.9 Hypertensive chronic kidney disease with stage 1 through stage 4 chronic kidney disease, or unspecified chronic kidney disease (principal); I16.9 Hypertensive crisis, unspecified; E78.5 Hyperlipidemia, unspecified; M10.9 Gout, unspecified; N18.9 Chronic kidney disease, unspecified; Z86.711 Personal history of pulmonary embolism; Z86.718 Personal history of other venous thrombosis and embolism
CPT/HCPCS: 70450; 71045; 71275; 74174; 80048; 81001; 82550; 82552; 84484; 85025; 86850; 86900; 86901; 93005; 96374; 96375; J0360; J1644; J2270; J2765; J7030; Q9967

== ENCOUNTER 2018-09-24 17:40 | Observation (INO) ==
--- NOTE | 2018-09-24 17:55 | ED ---
HPI General Chief Complaint: Chest Pain Stated Complaint: chest pain Time Seen by Provider: 09/24/18 17:46 History of Present Illness HPI narrative: Patient is 58-year-old -Russian male with history of high blood pressure, gout arthritis, hyperlipidemia patient takes losartan with hydrochlorothiazide. Today he presented with episodes of chest pain, lightheadedness, weakness. Systolic blood pressures over than 200. Patient had similar presentation in the past. Echocardiogram done 1 months ago shows good ejection. No chest pain in the emergency room. Patient took aspirin at home. MD complaint: Reports chest pain Related Data Home Medications Medication Instructions Recorded Confirmed hydralazine 25 mg PO TID 06/12/18 09/24/18 losartan-hydrochlorothiazide 1 tab PO BID 06/12/18 09/24/18 allopurinol 100 mg PO DAILY 09/24/18 09/24/18 lovastatin 40 mg PO BID 09/24/18 09/24/18 Allergies Allergy/AdvReac Type Severity Reaction Status Date / Time No Known Allergies Allergy Unverified 06/12/18 22:32 Review of Systems ROS: all other systems reviewed are negative Cardiovascular Reports chest pain PMFSH Medical History Medical History Elevated cholesterol (Acute) Gout (Acute) Hypertension (Acute) Surgical History Surgical History Adrenal mass, right (Acute) Social History Social History Substance History: No History of Abuse Second Hand Smoke Exposure: No Smoking Status: Never smoker How Often Do You Have a Drink Containing Alcohol: 2 to 3 times a week Exam Narrative Exam Narrative: GENERAL: 58-year-old male in no apparent distress. SKIN: Focused skin assessment warm/dry. HEAD: Atraumatic. Normocephalic. EYES: Pupils equal and round. No scleral icterus. No injection or drainage. ENT: No nasal bleeding or discharge. Mucous membranes pink and moist. NECK: Trachea midline. No JVD. CARDIOVASCULAR: Regular rate and rhythm. No murmur appreciated. RESPIRATORY: No accessory muscle use. Clear to auscultation. Breath sounds equal bilaterally. GASTROINTESTINAL: Abdomen soft, non-tender, nondistended. Hepatic and splenic margins not palpable. MUSCULOSKELETAL: No obvious deformities. No clubbing. No cyanosis. No edema. NEUROLOGICAL: Awake and alert. No obvious cranial nerve deficits. Motor grossly within normal limits. Normal speech. PSYCHIATRIC: Appropriate mood and affect; insight and judgment normal. Course Initial Documented Vital Signs Temperature 98.1 F 09/24/18 17:56 Pulse Rate 92 H 09/24/18 17:56 Respiratory Rate 18 09/24/18 17:56 Blood Pressure 181/119 H 09/24/18 17:56 Pulse Oximetry 100 09/24/18 17:56 Last Documented Vital Signs Temperature 98.1 F 09/24/18 17:56 Pulse Rate 68 09/24/18 18:46 Respiratory Rate 16 09/24/18 18:46 Blood Pressure 146/104 H 09/24/18 18:46 Pulse Oximetry 98 09/24/18 18:46 Medical Decision Making MDM Narrative Medical decision making narrative: Cardiac workup ordered including blood work, chest x-ray, EKG. Metoprolol and nitroglycerin given for high blood pressure. 1855: Patient feels better, asymptomatic in the emergency room. First set of cardiac enzymes is negative, patient has history of renal insufficiency, today his creatinine is 1.5, blood pressure is 148/104, improved. Patient needs to be placed on observation due to hypertensive urgency and chest pain rule out ACS. Hospitalist called. Medical Screen Exam Complete: Yes Emergency Medical Condition: Yes Differential Diagnosis Differential Diagnosis: Chest pain rule out ACS versus hypertensive urgency versus hypertensive emergency. Lab Data Result diagrams: 09/24/18 17:50 09/24/18 17:50 Lab Results 09/24/18 09/24/18 09/24/18 Range/Units 17:50 17:50 17:50 CBC w Diff Auto diff final WBC 4.6 (4.0-11.0) th/mm3 RBC 5.00 (4.50-5.90) mil/mm3 Hgb 16.0 (13.0-17.0) gm/dL Hct 45.2 (39.0-51.0) % MCV 90.5 (80.0-100.0) fL MCH 32.0 (27.0-34.0) pg MCHC 35.3 (32.0-36.0) % RDW 14.1 (11.6-17.2) % Plt Count 320 (150-450) th/mm3 MPV 7.1 (7.0-11.0) fL Neut % (Auto) 69.0 (16.0-70.0) % Lymph % (Auto) 28.1 (9.0-44.0) % Roberts % (Auto) 2.6 (0.0-8.0) % Eos % (Auto) 0.1 (0.0-4.0) % Baso % (Auto) 0.2 (0.0-2.0) % Neut # (Auto) 3.2 (1.8-7.7) th/mm3 Lymph # (Auto) 1.3 (1.0-4.8) th/mm3 Roberts # (Auto) 0.1 (0.0-0.9) th/mm3 Eos # (Auto) 0.0 (0.0-0.4) th/mm3 Baso # (Auto) 0.0 (0.0-0.2) th/mm3 WBC Differential . Differential Comment . Sodium 137 (136-145) meq/L Potassium 3.8 (3.5-5.1) meq/L Chloride 102 (98-107) meq/L Carbon Dioxide 27.9 (21.0-32.0) meq/L Anion Gap 7 (5-15) meq/L BUN 24 H (7-18) mg/dL Creatinine 1.50 H (0.60-1.30) mg/dL Estimated GFR 58 L (>89) mL/min Random Glucose 128 H (74-106) mg/dL Calcium 9.1 (8.5-10.1) mg/dL Total Bilirubin 0.4 (0.2-1.0) mg/dL AST 25 (15-37) U/L ALT 47 (12-78) U/L Alkaline Phosphatase 73 (45-117) U/L Troponin I Less than 0.02 L (0.02-0.05) ng/mL B-Natriuretic Peptide 17 (0-100) pg/mL Total Protein 8.9 H (6.4-8.2) g/dL Albumin 4.3 (3.4-5.0) g/dL Imaging Data Radiologist's impression: Chest X-Ray 09/24/18 17:50 CONCLUSION: Negative examination. ECG Data EKG Prior to Arrival: No Attestation: I personally reviewed and interpreted this ECG as follows: Prior ECG tracings: available for review Interpretation: Normal sinus rhythm at rate 94, no ST elevation, left axis deviation. Discharge Plan Discharge Disposition Patient Disposition: 30 Still Patient Discharge Condition Condition: Fair Discharge Details Diagnosis: Hypertensive urgency, Atypical chest pain Physicians Team ED Provider: Julius Cruz Primary Care Provider: UNKNOWN, Rxs /Orders / Referrals /Forms Prescriptions: No Action hydralazine 25 mg Tablet 25 mg PO TID RF: 0 losartan-hydrochlorothiazide 50-12.5 mg Tablet 1 tab PO BID RF: 0 lovastatin 40 mg Tablet 40 mg PO BID RF: 0 allopurinol 100 mg Tablet 100 mg PO DAILY RF: 0 Discharge Instructions Patient Printed Instructions: Chest Pain (ED) Status ED Status: Admitted Patient
[2018-09-24 18:01] LABS: Baso % (Auto) 0.2 % (0.0-2.0); Eos % (Auto) 0.1 % (0.0-4.0); Hematocrit 45.2 % (39.0-51.0); Lymph # (Auto) 1.3 th/mm3 (1.0-4.8); Lymph % (Auto) 28.1 % (9.0-44.0); Mean Corpuscular HGB Conc 35.3 % (32.0-36.0); Mean Corpuscular Volume 90.5 fL (80.0-100.0); Mean Platelet Volume 7.1 fL (7.0-11.0); Mono # (Auto) 0.1 th/mm3 (0.0-0.9); Mono % (Auto) 2.6 % (0.0-8.0); Neut # (Auto) 3.2 th/mm3 (1.8-7.7); Platelet Count 320 th/mm3 (150-450); Red Cell Distribution Width 14.1 % (11.6-17.2); White Blood Count 4.6 th/mm3 (4.0-11.0)
[2018-09-24 18:10] LABS: Chloride 102 meq/L (98-107); Potassium 3.8 meq/L (3.5-5.1); Sodium 137 meq/L (136-145)
[2018-09-24] MEDS: Metoprolol Inj 5 MG/5 ML Vial IV.PUSH SCH ×3 (18:10→18:24)
[2018-09-24 18:11] LABS: Calcium 9.1 mg/dL (8.5-10.1)
[2018-09-24 18:12] LABS: Albumin 4.3 g/dL (3.4-5.0); Anion Gap 7 meq/L (5-15); Blood Urea Nitrogen 24 mg/dL (7-18); Carbon Dioxide 27.9 meq/L (21.0-32.0); Glucose,Random 128 mg/dL (74-106)
[2018-09-24 18:15] LABS: Alanine Aminotransferase 47 U/L (12-78); Aspartate Aminotransferase 25 U/L (15-37); Glomerular Filtration Rate 58 mL/min (>89)
[2018-09-24 18:17] LABS: Total Protein 8.9 g/dL (6.4-8.2)
[2018-09-24 18:18] LABS: Alkaline Phosphatase 73 U/L (45-117)
--- NOTE | 2018-09-24 19:03 | XR ---
EXAM DATE: 09/24/2018 6:30 PM EDT AGE/SEX: 58 years / Male INDICATIONS: Chest pain. CLINICAL DATA: This is the patient's initial encounter. Patient reports that signs and symptoms have been present for 2 days and indicates a pain score of 5/10. MEDICAL/SURGICAL HISTORY: Hypertension. None. COMPARISON: [facility], CHEST 1V SINGLE AP, 06/12/2018. . FINDINGS: A single AP view of the chest demonstrates the lungs to be symmetrically aerated without evidence of mass, infiltrate or effusion. The cardiomediastinal contours are unremarkable. Osseous structures a re intact. CONCLUSION: Negative examination. Electronically signed by: Fan Narvaez MD 09/24/2018 7:02 PM EDT
[2018-09-24 19:56] LABS: Creatine Kinase 306 U/L (39-308)
[2018-09-24] MEDS ORDERED: Acetaminophen 325 MG Tablet PO PRN (22:59)
[2018-09-24 23:07] LABS: Creatine Kinase 302 U/L (39-308)
--- NOTE | 2018-09-25 08:02 | P.HP ---
History of Present Illness Primary Care Physician: Ruperto Ann MD Chief Complaint: chest pain History of Present Illness: This is a 58-year-old -[place] male with a known medical history of high blood pressure, gout, hyperlipidemia and arthritis who presented to the ED with complaints of chest pain. Patient states that the chest pain started roughly 2 days ago it was associated with shortness of breath. He does admit to exhaustion as well as fatigue overall. He states that the chest pain is midsternal, was tight in nature and radiates to his neck. It usually last couple seconds and then goes away on its own, he denies any known aggravating or alleviating factors. He denies any associated nausea or vomiting. Patient does follow closely with his PCP, has placed on hypertensive meds and has been taking hydralazine as needed 25 mg 3 times a day. He states that he has been taking this roughly a couple times hit or miss every day. He is unaware of his family medical history. He did have a cardiac stress test over several years ago which was reportedly negative. He did have an echocardiogram roughly a month ago which showed good ejection fraction per patient report. He takes an aspirin at home a day. Since presentation patient's blood pressure has been normal controlled on hydralazine 25 mg 3 times a day. - Diagnosis (1) Hypertensive urgency (2) Atypical chest pain Review of Systems All other systems reviewed negative except as stated in HPI PMFSH - History History Provided By: Patient - Medical History Medical History: Medical History (Last Reviewed 09/25/18 @ 13:39 by Gwen Mckenzie) Elevated cholesterol Gout Hypertension - Surgical History Surgical History: Surgical History (Last Reviewed 09/25/18 @ 13:39 by Gwen Mckenzie) Adrenal mass, right - Family History Family History: Family History (Last Updated 09/25/18 @ 13:39 by Gwen Mckenzie) Other Family history non-contributory - Social History I have reviewed the patient's Social History: Yes - Tobacco History Second Hand Smoke Exposure: No Smoking Status: Never smoker - Alcohol History How Often Do You Have a Drink Containing Alcohol: Never - Substance Use History Substance History: No History of Abuse - Travel History Recent Travel in the [place] Within the Last 8 Weeks: No Recent Travel Out of the Country Within the Last 8 Weeks: No - Immunization History Tetanus Immunization: <5 Years Medications and Allergies Active Medications: Active Medications Acetaminophen (Tylenol) 650 mg PO Q4H PRN PRN Reason: PAIN 1-10 OR TEMP > 100.4 F Last Admin: 09/24/18 23:52 Dose: 650 mg Allopurinol (Zyloprim) 100 mg PO DAILY [facility] Aspirin (Aspirin) 325 mg PO DAILY [facility] Clonidine HCl (Catapres) 0.1 mg PO Q6H PRN PRN Reason: SEE LABEL COMMENTS Last Admin: 09/24/18 23:34 Dose: 0.1 mg Enalaprilat (Vasotec Inj) 1.25 mg IV.PUSH Q6H PRN PRN Reason: SEE LABEL COMMENTS Hydralazine HCl (Apresoline) 25 mg PO TID JAH Hydrochlorothiazide (Microzide) 12.5 mg PO BID JAH Losartan Potassium (Cozaar) 50 mg PO BID JAH Sodium Chloride (Ns Flush) 2 ml IV.FLUSH BID JAH Last Admin: 09/24/18 23:07 Dose: 2 ml Sodium Chloride (Ns Flush) 2 ml IV.FLUSH PRN PRN PRN Reason: FLUSH AFTER USING IV ACCESS Allergies Allergy/AdvReac Type Severity Reaction Status Date / Time No Known Allergies Allergy Unverified 06/12/18 22:32 Home Medications Medication Instructions Recorded Confirmed Type hydralazine 25 mg PO TID 06/12/18 09/24/18 History losartan-hydrochlorothiazide 1 tab PO BID 06/12/18 09/24/18 History allopurinol 100 mg PO DAILY 09/24/18 09/24/18 History Exam Vital signs: Vital Signs 09/24/18 17:56 09/24/18 18:25 09/24/18 18:46 Temperature 98.1 F Pulse Rate 92 H 70 68 Respiratory Rate 18 18 16 Blood Pressure 181/119 H 154/111 H 146/104 H Pulse Oximetry 100 98 98 09/24/18 19:09 09/24/18 20:00 09/24/18 21:00 Temperature 97.2 F L 97.8 F Pulse Rate 60 75 58 L Respiratory Rate 16 20 18 Blood Pressure 130/98 H 137/86 158/77 H Pulse Oximetry 96 96 09/24/18 22:30 09/24/18 23:15 09/25/18 01:13 Temperature 97.0 F L 97.9 F Pulse Rate 66 53 L Respiratory Rate 18 18 Blood Pressure 155/102 H 115/85 Pulse Oximetry 95 96 99 09/25/18 01:27 09/25/18 05:18 Temperature 97.7 F Pulse Rate 65 52 L Respiratory Rate 18 Blood Pressure 120/79 Pulse Oximetry 100 Intake & Output 09/24/18 09/25/18 09/25/18 18:59 06:59 18:59 Intake Total 0 / 0 Balance 0 / 0 Weight 88.6 kg Intake: Oral 0 / 0 Other: # Voids 2 Date of Last Bowel Movement 09/24/18 Weight On Admission 204 kg Narrative: GENERAL: Well-developed, well-nourished patient in [facility]. SKIN: Warm and dry. No rash. HEAD: Normocephalic. Atraumatic. EYES: Pupils equal and round. No scleral icterus. No injection or drainage. ENT: No nasal bleeding or discharge. Mucous membranes pink and moist. NECK: Supple. Trachea midline. CARDIOVASCULAR: Regular rate and rhythm. S1, S2 noted. No murmur appreciated. No chest pain to palpation. RESPIRATORY: No accessory muscle use. Clear to auscultation. Breath sounds equal bilaterally. GASTROINTESTINAL: Abdomen soft, non-tender, nondistended. Normoactive bowel sounds x4. MUSCULOSKELETAL: No obvious deformities. Extremities without clubbing, cyanosis , or edema. NEUROLOGICAL: Awake and alert. No obvious cranial nerve deficits. Motor grossly within normal limits. 5/5 muscle strength in bilateral upper and lower extremities. Normal speech. PSYCHIATRIC: Appropriate mood and affect; insight and judgment normal. Results - Labs CBC & Chem 7: 09/24/18 17:50 09/24/18 17:50 Labs: Laboratory Results - last 24 hr 09/24/18 09/24/18 09/24/18 17:50 17:50 17:50 CBC w Diff Auto diff final WBC 4.6 RBC 5.00 Hgb 16.0 Hct 45.2 MCV 90.5 MCH 32.0 MCHC 35.3 RDW 14.1 Plt Count 320 MPV 7.1 Neut % (Auto) 69.0 Lymph % (Auto) 28.1 [place] % (Auto) 2.6 Eos % (Auto) 0.1 Baso % (Auto) 0.2 Neut # (Auto) 3.2 Lymph # (Auto) 1.3 [place] # (Auto) 0.1 Eos # (Auto) 0.0 Baso # (Auto) 0.0 WBC Differential . Differential Comment . Sodium 137 Potassium 3.8 Chloride 102 Carbon Dioxide 27.9 Anion Gap 7 BUN 24 H Creatinine 1.50 H Estimated GFR 58 L Random Glucose 128 H Calcium 9.1 Total Bilirubin 0.4 AST 25 ALT 47 Alkaline Phosphatase 73 Total Creatine Kinase Troponin I Less than 0.02 L B-Natriuretic Peptide 17 Total Protein 8.9 H Albumin 4.3 09/24/18 09/24/18 19:30 22:24 CBC w Diff WBC RBC Hgb Hct MCV MCH MCHC RDW Plt Count MPV Neut % (Auto) Lymph % (Auto) [place] % (Auto) Eos % (Auto) Baso % (Auto) Neut # (Auto) Lymph # (Auto) [place] # (Auto) Eos # (Auto) Baso # (Auto) WBC Differential Differential Comment Sodium Potassium Chloride Carbon Dioxide Anion Gap BUN Creatinine Estimated GFR Random Glucose Calcium Total Bilirubin AST ALT Alkaline Phosphatase Total Creatine Kinase 306 302 Troponin I Less than 0.02 L Less than 0.02 L B-Natriuretic Peptide Total Protein Albumin - Imaging Impressions Chest X-Ray 09/24/18 17:50 CONCLUSION: Negative examination. Caprini VTE Risk Assessment Caprini VTE Risk Assessment: No/Low Risk (score <= 1) Caprini Risk Assessment Model: Point Value = 1 Point Value = 2 Point Value = 3 Point Value = 5 Age 41-60 Minor surgery BMI > 25 kg/m2 Swollen legs Varicose veins or History of unexplained or recurrent spontaneous Oral contraceptives or hormone replacement Sepsis (< 1 month) Serious lung disease, including pneumonia (< 1 month) Abnormal pulmonary function Acute myocardial infarction Congestive heart failure (< 1 month) History of inflammatory bowel disease Medical patient at bed rest Age 61-74 Arthroscopic surgery Major open surgery (> 45 min) Laparoscopic surgery (> 45 min) Malignancy Confined to bed (> 72 hours) Immobilizing plaster cast Central venous access Age >= 75 History of VTE Family history of VTE Factor V Leiden Prothrombin [id number] Lupus anticoagulant Anticardiolipin antibodies Elevated serum homocysteine Heparin-induced thrombocytopenia Other congenital or acquired thrombophilia Stroke (< 1 month) Elective arthroplasty Hip, pelvis, or leg fracture Acute spinal cord injury (< 1 month) Prophylaxis Regimen: Total Risk Factor Score Risk Level Prophylaxis Regimen 0-1 Low Early ambulation 2 Moderate Order ONE of the following: *Sequential Compression Device (SCD) *Heparin 5000 units SQ BID 3-4 Higher Order ONE of the following medications: *Heparin 5000 units SQ TID *Enoxaparin/Lovenox 40 mg SQ daily (WT < 150 kg, CrCl > 30 mL/min) *Enoxaparin/Lovenox 30 mg SQ daily (WT < 150 kg, CrCl > 10-29 mL/min) *Enoxaparin/Lovenox 30 mg SQ BID (WT < 150 kg, CrCl > 30 mL/min) AND/OR *Sequential Compression Device (SCD) 5 or more Highest Order ONE of the following medications: *Heparin 5000 units SQ TID (Preferred with Epidurals) *Enoxaparin/Lovenox 40 mg SQ daily (WT < 150 kg, CrCl > 30 mL/min) *Enoxaparin/Lovenox 30 mg SQ daily (WT < 150 kg, CrCl > 10-29 mL/min) *Enoxaparin/Lovenox 30 mg SQ BID (WT < 150 kg, CrCl > 30 mL/min) AND *Sequential Compression Device (SCD) Assessment and Plan - Assessment (1) Hypertensive urgency Code(s): I16.0 - Hypertensive urgency Status: Acute (2) Atypical chest pain Code(s): R07.89 - Other chest pain Status: Acute - Plan This is a 58-year-old male patient with: Chest pain -Patient has been admitted to the chest pain center for observation. Serial EKGs and serial troponins been ordered for ruling out ACS purposes. Troponins flat. -EKG reviewed showing sinus rhythm with no ST changes to indicate any ischemia. -Patient continue on cardiac telemetry, no arrhythmias noted. CBC essentially remarkable. -Chest x-ray reviewed and no acute cardiopulmonary disease. Patient symptoms have improved. -He does complain of some left neck pain, states that this may be due to pulling a muscle. -He underwent a cardiac treadmill stress test with on-call digester capper reviewed which did not show any ischemia. -Patient symptoms have improved overall. Will follow up with PCP. -Continue on home medications, encourage hydralazine 25 mg 3 times daily as ordered per PCP as well as losartan. Continue statin. Chronic kidney disease stage III -He does admit to some chronic kidney disease, has been worked up in his primary setting, recently underwent a renal ultrasound which was reportedly unremarkable per patient report. Encouraged to have a follow-up BMP to follow renal function. Orders written. DC home. Heart healthy diet as tolerated. Activity as tolerated. Rx as written. Follow up PCP.
[2018-09-25] MEDS ORDERED: hydrALAZINE 25 MG Tablet PO SCH (09:00)
[2018-09-25] MEDS ORDERED: Non-Formulary Drug (Losartan-Hydrochlorothiazide [Losartan-Hydrochlorothiazide] 1 TAB) PO SCH (09:00)
[2018-09-25] MEDS ORDERED: Allopurinol 100 MG Tablet PO SCH (09:00)
[2018-09-25] MEDS ORDERED: Aspirin 325 MG Tablet PO SCH (09:00)
--- NOTE | 2018-09-25 13:32 | ECG ---
Date Performed: 09/24/2018 Time Performed: 22:20:21 PTAGE: 58 years EKG: SINUS BRADYCARDIA NONSPECIFIC T-WAVE ABNORMALITY BORDERLINE ECG PREVIOUS TRACING : 09/24/2018 19.26 DOCTOR: Corky Rodriguez Interpretating Date/Time 09/25/2018 13:29:54
--- NOTE | 2018-09-25 13:35 | ECG ---
Date Performed: 09/24/2018 Time Performed: 19:26:15 PTAGE: 58 years EKG: Sinus rhythm MINIMAL VOLTAGE CRITERIA FOR LVH, CONSIDER NORMAL VARIANT BORDERLINE ECG PREVIOUS TRACING : 09/24/2018 17.44 DOCTOR: Corky Rodriguez Interpretating Date/Time 09/25/2018 13:32:55
--- NOTE | 2018-09-25 13:37 | ECG ---
Date Performed: 09/24/2018 Time Performed: 17:44:35 PTAGE: 58 years EKG: Sinus rhythm BORDERLINE LEFT AXIS DEVIATION BORDERLINE ECG PREVIOUS TRACING : 06/12/2018 22.56 DOCTOR: Corky Rodriguez Interpretating Date/Time 09/25/2018 13:35:21
--- NOTE | 2018-09-26 13:51 | TR ---
Date Performed: 09/25/2018 Time Performed: 11:30:10 DOCTOR: Alan Hull DRUG LIST: CLINICAL HISTORY: REASON FOR TEST: REASON FOR ENDING: OBSERVATION: CONCLUSION: Devendra protocol performed and completed, test stopped secondary to reaching target he art. No reproducible chest discomfort, good exercise tolerance. Good BP response. Recovery quick.Maxi mum RI=399 Target CO=020 Target HR Vrcuntbi=871.0% Total Exercise Time=5:26 COMMENTS: Conclusion: Normal treadmill exercise. No evidence of ischemia.
== END 2018-09-25 14:02 | disposition home or self-care (01) ==
LOC: PHEDA 17:40 → PHED 17:40 → PH3 20:36
PROVIDERS: ADMIT Internal Medicine; ATTEND Internal Medicine